=== PATIENT | female | born 1995 | race Two or more races ===

== ENCOUNTER 2025-07-06 12:55 | Emergency (ER) | payer MEDICAID, SELFPAY ==
[2025-07-06 13:30] VITALS: BP 107/70; PULSE 75; RESP 16; TEMP 36.9; O2SAT 96
--- NOTE | 2025-07-06 14:32 | EDNOTE_ITS ---
<Statement entered by Sarah Glover MD - 07/07/25 06:24> As co-signing physician, I was present and available for consult prn. I concur with the plan and care as documented by the midlevel provider. ED General RME/HPI General Chief complaint: General Adult/Misc Complain Stated complaint: PAIN W/ URINATION Time Seen by Provider: 07/06/25 14:08 Arrival date/time: 07/06/25 12:55 RME / HPI RME / HPI narrative: 30-year-old healthy female presents to the ER complaining of dysuria x 3 days. Patient's last menstrual period was about a week ago. Denies any fever, nausea, vomiting, flank pain, abnormal vaginal bleeding or discharge. Related Data Previous Rx's ?Medication ?Instructions ?Recorded cephalexin 500 mg capsule 500 mg PO QID #40 caps 07/06 phenazopyridine 200 mg tablet 200 mg PO TID 6 doses #6 tabs 07/06/25 Allergies Allergy/AdvReac Type Severity Reaction Status Date / Time No Known Allergies Allergy Verified 07/06/25 12:59 ED Exam Narrative Physical exam: Constitutional: Patient alert and oriented. Well appearing. No acute distress. Not toxic appearing. Head: Normocephalic, atraumatic. Eyes: Periorbital regions bilaterally normal to inspection. Conjunctiva clear bilaterally. Sclera anicteric bilaterally. Pupils equal, round, reactive to light bilaterally. Extraocular movements intact bilaterally. Mouth/Throat: Mucous membranes moist. No stridor or muffled voice. No trismus. Handling secretions without difficulty. Airway widely patent. Neck: Supple. Trachea midline. No JVD. No nuchal rigidity. No midline tenderness or step-offs. Normal range of motion. Respiratory: Normal effort. No accessory muscle use or respiratory distress. Lungs clear to auscultation bilaterally without rhonchi, wheezes, or crackles. Cardiovascular: RRR. Normal S1/S2. No murmurs or rubs. Radial pulses intact bilaterally. Abdomen: Soft. Non-distended. Non-tender throughout. No pulsatile mass. No guarding or rebound. Negative Sheppard?s sign. Negative McBurney?s point tenderness. Negative Rovsing?s. Back: No midline tenderness or step-offs. No CVA tenderness to palpation bilaterally. Upper Extremities: No gross deformities. Lower Extremities: No gross deformities. Neuro: Speech normal. No gross motor or sensory deficits to upper or lower extremities bilaterally. GCS 15. CN II?XII grossly intact. Skin: Warm, dry, normal color. Psych: Normal affect. Cooperative. Normal insight. Pelvic exam deferred Course Quality Measures none Orders Category Date Time Status HCG Qualitative,Urine Stat Lab 07/06/25 15:08 Completed UA, C/S IF [Urinalysis, C/S if Indicated] Stat Lab 07/06/25 15:08 Completed Urine Culture Stat Lab 07/06/25 15:08 Received Reevaluation(s) Reevaluation #1: At the time of reassessment, the patient remains alert and oriented ?3 with GCS 15. Vitals are normal, pain is controlled, and the patient is tolerating oral intake without nausea or vomiting. The patient is agreeable to discharge and verbalizes understanding of the diagnosis, studies, treatment plan, medications (including side effects/precautions), and strict ER return precautions as discussed in the ED. All concerns were addressed, and the patient is comfortable with the plan. Vital Signs Vital signs: Vital Signs Temperature 98.4 F 07/06/25 13:30 Pulse Rate 75 07/06/25 13:30 Respiratory Rate 16 07/06/25 13:30 Blood Pressure 107/70 07/06/25 13:30 Pulse Oximetry (%) 96 07/06/25 13:30 Oxygen Delivery Method Room Air 07/06/25 13:30 Discharge Plan Plan Patient Disposition: HOME (Self Care) Discharge Disposition comment: Follow up with your primary medical doctor within 48 hours. Return to the Emergency Room immediately for any new, worsening, continuing symptoms or any concerns at all. Return to the Emergency Room within 48 hours if you are unable to follow up with your primary medical doctor within 48 hours. Prescriptions/Referrals Prescriptions/Med Rec: New cephalexin 500 mg capsule 500 mg PO QID Qty: 40 0RF phenazopyridine 200 mg tablet 200 mg PO TID Qty: 6 0RF Referrals: [facility] [Provider Group] - In 1 week Tavares Rolon MD [Referring Provider, Cardiology] - In 1 week Maia Rodriguez MD [Physician, Urology] - In 1 week No Primary/Family,Physician [Primary Care Provider] - In 1 week Bassem Gallegos MD [Physician, Neurology] - In 1 week Problem List Clinical Impression: UTI (urinary tract infection) Patient/Caregiver Discharge Instructions Print Language: Haitian Stand Alone Forms: Leanna Award Info., Patient Portal Info Letter PA/E [employer] Supervising Physician PA/E [employer] Supervising Physician: Dr. Glover
[2025-07-06 15:21] LABS: Collection Type, Urine Voided
[2025-07-06 15:30] LABS: Bacteria,Urine Rare; Bilirubin,Urine Negative (Negative); Blood,Urine 2+ (Negative); Color,Urine Drk-Yellow (Lt Yel-Yel); Glucose, Urine Negative (Negative); Ketones,Urine Negative (Negative); Leukocyte Esterase,Urine Positive (Negative); PH,Urine 7.0 (5.0-7.0); Protein,Urine Negative (Neg - Trace); RBC,Urine 4 /hpf (0-3); Specific Gravity,Urine 1.007 (1.001-1.035); Squamous Epithelial Cell,Urine 2 /hpf (0-5); Urobilinogen,Urine Negative mg/dL (0.0-1.0); WBC,Urine 151 /hpf (0-5)
[2025-07-06 15:40] LABS: Clarity,Urine Hazy (Clear/Hazy); Culture Indicated,Urine Yes; HCG Qualitative,Urine Negative; Nitrite,Urine Negative (Negative)
== END 2025-07-06 17:31 | disposition home or self-care (01) ==
PROVIDERS: Physician Assistant; Emergency Provider Emergency Medicine
DX: N39.0 Urinary tract infection, site not specified (principal)
CPT/HCPCS: 81001; 81025; 87077; 87086; 87186; 99283